=== PATIENT | male | born 1980 | race Native Hawaiian/Other Pacific Islander ===

== ENCOUNTER 2017-09-22 08:03 | Emergency (ER) | payer OTHER ==
--- NOTE | 2017-09-22 08:07 | C.PDOC ---
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 BLOOD FROM unk HIV STATUS ADMITTED PT(MR# [id number] ). PS IMMEDIATELY CLEANED WOUND PER NEEDLESTICK PROTOCOL. NO OTHER ASSOC SX OR INJURY EXAM NAD SKIN SMALL LINEAR SUPERIFICAL ABRASION TIP L 3 FINGERTIP. NO ACTIVE BLEEDING. EXT NO DEFORM, SWELL NONTEND REMAINDER NEG MDM DEFER HIV PROPH PENDING RESULT HIV OF INPATIENT PATIENT.. DEFER TETANUS PER . Time Seen by Provider: 09/22/17 08:07 History Per: Patient History/Exam Limitations: no limitations Onset/Duration Of Symptoms: Hrs Severity: Moderate Past Medical History Reviewed: Historical Data, Nursing Documentation, Vital Signs Vital Signs: Last Vital Signs Temp 98.5 F 09/22/17 08:09 Pulse 98 H 09/22/17 08:09 Resp 20 09/22/17 08:09 BP 135/86 09/22/17 08:09 Pulse Ox 98 09/22/17 08:09 - Medical History PMH: No Chronic Diseases Surgical History: No Surg Hx Family History: States: No Known Family Hx Review Of Systems Except As Marked, All Systems Reviewed And Found Negative. Musculoskeletal: Positive for: Hand Pain (left 3rd finger pain) Physical Exam - Physical Exam Appears: No Acute Distress Skin: Normal Color, Warm, Other (small linear superficial abrasion to L3 fingertip, no active bleeding) Head: Atraumatic, Normacephalic Eye(s): bilateral: Normal Inspection Extremity: Normal ROM, No Tenderness, No Deformity, No Swelling Neurological/Psych: Oriented x3, Normal Speech, Normal Motor, Normal Sensation ED Course And Treatment - Laboratory Results Result Diagrams: 09/22/17 08:24 09/22/17 08:24 Reevaluation Time: 08:33 Reassessment Condition: Unchanged (PT OFFERED ABX FOR CELLULITIS PROPHYLAXIS, DEFERS @ THIS TIME. PENDING HIV RESULT FROM INPATIENT. PS DOES NOT WISH TO WAIT FOR THAT RESULT, DEFERS HIV PROPH PENDING RESULT.) Medical Decision Making Medical Decision Making: DEFER HIV PROPH PENDING RESULT HIV OF INPATIENT PATIENT.. DEFER TETANUS PER . Disposition Counseled Patient/Family Regarding: Diagnosis, Need For Followup - Disposition Referrals: [facility] [Provider Group] Disposition: HOME/ ROUTINE Disposition Time: 08:34 Condition: GOOD Prescriptions: Dolutegravir Sodium [Tivicay] 1 tab PO DAILY #27 tab Dolutegravir Sodium [Tivicay] 1 tab PO DAILY #2 tab Emtricitabine/Tenofovir Diso [Truvada 200 MG-300 MG] 1 tab PO DAILY #30 tab Emtricitabine/Tenofovir Diso [Truvada 200 MG-300 MG] 1 tab PO DAILY #2 tab Instructions: Needle Stick Injuries (ED) Forms: Work Excuse - Clinical Impression Clinical Impression: Needle stick injury of finger - Scribe Statement The provider has reviewed the documentation as recorded by the Bill Walters Provider Attestation: All medical record entries made by the Bill were at my direction and personally dictated by me. I have reviewed the chart and agree that the record accurately reflects my personal performance of the history, physical exam, medical decision making, and the department course for this patient. I have also personally directed, reviewed, and agree with the discharge instructions and disposition.
[2017-09-22 08:26] VITALS: BP 135/86; PULSE 98; RESP 20; TEMP 98.5; O2SAT 98
[2017-09-22 08:30] LABS: BASO # 0.1 K/uL (0.0-0.2); BASO % 1.5 % (0.0-2.0); EOS # 0.2 K/uL (0.0-0.7); EOS % 4.9 % (0.0-4.0); HEMOGLOBIN 12.7 g/dL (12.0-18.0); LYMPH # 1.8 K/uL (1.0-4.3); LYMPH % 39.3 % (20.0-40.0); MEAN CELL VOLUME 60.2 fL (80.0-94.0); MEAN CORPUSCULAR HEMOGLOBIN 19.8 pg (27.0-31.0); MEAN CORPUSCULAR HGB CONC 32.9 g/dL (33.0-37.0); MEAN PLATELET VOLUME 9.1 fL (7.2-11.7); MONO # 0.4 K/uL (0.0-0.8); MONO % 9.1 % (0.0-10.0); NEUT # 2.1 K/uL (1.8-7.0); NEUT % 45.2 % (50.0-75.0); NRBC % 0.2 % (0.0-2.0); RBC 6.39 Mil/uL (4.40-5.90); RED CELL DISTRIBUTION WIDTH 16.3 % (11.5-14.5); WHITE BLOOD COUNT 4.6 K/uL (4.8-10.8)
[2017-09-22] MEDS ORDERED: Emtricitabine-Tenofovir 200 mg-300 mg Tab PO STA (08:36)
[2017-09-22 08:50] LABS: ALB/GLOB RATIO 1.2 (1.0-2.1); ALBUMIN 4.5 g/dL (3.5-5.0); ALT/SGPT 45 U/L (21-72); AMYLASE 120 U/L (30-110); AST/SGOT 37 U/L (17-59); BLOOD UREA NITROGEN 18 mg/dL (9-20); CALCIUM 9.8 mg/dl (8.6-10.4); GFR AFRICAN-AMERICAN > 60; GFR NON-AFRICAN AMERICAN > 60
[2017-09-22] MEDS ORDERED: Emtricitabine-Tenofovir 200 mg-300 mg Tab PO SCH (09:00)
[2017-09-22 09:20] LABS: HEPATITIS B SURFACE AG Negative (NEGATIVE)
[2017-09-22 09:23] LABS: SQUAMOUS EPITHIAL < 1 /hpf (0-5); URINE BILIRUBIN NEGATIVE (NEGATIVE); URINE BLOOD NEGATIVE (NEGATIVE); URINE CLARITY Clear (Clear); URINE COLOR Straw (YELLOW); URINE GLUCOSE (UA) NORMAL (Normal); URINE LEUKOCYTE ESTERASE NEG Leu/uL (Negative); URINE NITRATE NEGATIVE (NEGATIVE); URINE PROTEIN NEGATIVE (NEGATIVE); URINE UROBILINOGEN NORMAL mg/dL (0.2-1.0)
[2017-09-22 09:26] LABS: HEPATITIS A IGM NEGATIVE (NEGATIVE); HEPATITIS B CORE AB NEGATIVE (NEGATIVE)
[2017-09-22 09:37] LABS: HEPATITIS C ANTIBODY NEGATIVE (NEGATIVE)
== END 2017-09-22 08:50 | disposition home or self-care (01) ==
LOC: C.ER 08:03
DX: S60.413A Abrasion of left middle finger, initial encounter (principal); W46.0XXA Contact with hypodermic needle, initial encounter

== ENCOUNTER 2018-10-27 09:20 | Outpatient (CLI) | payer BC | END 2018-10-27 09:21 | disposition home or self-care (01) | LOC: C.RADH 09:20 ==